=== PATIENT | female | born 1985 | race Caucasian/White ===

== ENCOUNTER 2017-02-18 14:44 | Emergency (ER) | payer OTHER ==
[~2017-02-18] VITALS: Ht 162.6 cm; Wt 98.9 kg
[~2017-02-18 14:44] MED LIST: ACET50TA PO; IBUP60TA PO; PRENTAB7 PO; TUMS500C PO
[2017-02-18] MEDS ORDERED: ASPI81CH PO (15:04)
[2017-02-18] MEDS ORDERED: CRIN4GEL2 VA (15:04)
[2017-02-18] MEDS ORDERED: RHOGAM 300 MCG (1500 IU) INJ (J2790) IM SCH (15:30)
[2017-02-18 16:02] LABS: BASO # 0.1 K/mm3 (0.0-0.2); BASO % 0.7 % (0.0-1.0); EOS # 0.6 K/mm3 (0.0-0.50); EOS % 3.4 % (0.0-3.0); LARGE UNSTAINED CELL # 0.3 K/mm3 (0.0-0.4); LARGE UNSTAINED CELL % 1.7 % (0.0-4.0); LYMPH % 21.1 % (24.0-44.0); MEAN CORPUSCULAR HEMOGLOBIN 33.9 pg (27.0-33.0); MEAN CORPUSCULAR HGB CONC 35.2 g/dl (32.0-36.5); MEAN CORPUSCULAR VOLUME 96.2 fl (80.0-96.0); MONO # 0.8 K/mm3 (0.0-0.8); MONO % 4.3 % (0.0-5.0); NEUTROPHILS % 68.8 % (36.0-66.0); PLATELET COUNT, AUTOMATED 277 k/mm3 (150-450); RED CELL DISTRIBUTION WIDTH 12.9 % (11.5-14.5); WHITE BLOOD COUNT 17.5 K/mm3 (4.0-10.0)
--- NOTE | 2017-02-18 17:01 | REP ---
Obstetric sonography: History: Vaginal spotting. Findings: Transabdominal and transvaginal scanning are performed. Uterine dimensions are normal at 7.7 x 3.4 x 4.3 cm. No intrauterine gestational sac is seen. Endometrial lining measures approximate 4 mm. No free fluid is seen. No focal uterine mass is observed. Normal ovaries are seen. Right ovary measures 2.5 x 1.6 x 3.1 cm. Left ovary dimensions are 2.9 x 2.1 x 2.1 cm. Doppler flow is normal to both ovaries, resistive indices 0.45 and 0.53 on the right and left respectively. Impression: Morphologically normal pelvic sonography. No intrauterine gestation, cul-de-sac fluid, or adnexal abnormality seen. Nonspecific findings. Clinical and possibly sonographic followup should be considered. Signed by Will Malcolm MD 02/18/2017 05:03 P
[2017-02-18 17:16] VITALS: BP 123/60
== END 2017-02-18 17:16 | disposition home or self-care (01) ==
LOC: M ED 14:44
DX: O20.0 Threatened abortion (principal); O99.210 Obesity complicating pregnancy, unspecified trimester; Z3A.00 Weeks of gestation of pregnancy not specified; Z87.891 Personal history of nicotine dependence; Z79.82 Long term (current) use of aspirin; Z79.899 Other long term (current) drug therapy; Z88.0 Allergy status to penicillin; Z88.7 Allergy status to serum and vaccine
CPT/HCPCS: 76801; 76817; 84702; 85025; 86850; 86900; 86901; 93976; 96372; 99282; J2790

== ENCOUNTER → 2017-02-21 | Outpatient (CLI) | payer OTHER ==
[~2017-02-21] MED LIST changes: +ASPI81CH PO; +CRIN4GEL2 VA
== END ==
LOC: M LAB 07:07
PROVIDERS: ATTEND Physician Assistant Surgical
DX: O20.0 Threatened abortion (principal)

== ENCOUNTER → 2017-02-28 | Outpatient (CLI) | payer OTHER | LOC: M LAB 17:21 | PROVIDERS: ATTEND Specialist | DX: O00.80 Other ectopic pregnancy without intrauterine pregnancy (principal) ==

== ENCOUNTER 2017-03-01 12:02 | Outpatient (CLI) | payer OTHER ==
[~2017-03-01] VITALS: Ht 162.6 cm; Wt 100.2 kg
[2017-03-01] MEDS ORDERED: METHOTREXATE 50MG/2ML VIAL (J9260 PER 50MG) IM ONE (12:30)
[2017-03-01 13:27] LABS: MEAN CORPUSCULAR HEMOGLOBIN 33.8 pg (27.0-33.0); MEAN CORPUSCULAR HGB CONC 34.2 g/dl (32.0-36.5); MEAN CORPUSCULAR VOLUME 98.8 fl (80.0-96.0); RED CELL DISTRIBUTION WIDTH 13.3 % (11.5-14.5); WHITE BLOOD COUNT 13.1 K/mm3 (4.0-10.0)
[2017-03-01 14:08] LABS: ALBUMIN/GLOBULIN RATIO 1.38 (1.00-1.93); ALKALINE PHOSPHATASE 73 U/L (45-117); ALT/SGPT 30 U/L (12-78); ANION GAP 11 MEQ/L (8-16); AST/SGOT 16 U/L (15-37); BILIRUBIN,TOTAL 0.8 MG/DL (0.2-1.0); BLOOD UREA NITROGEN 7 MG/DL (7-18); CALCIUM LEVEL 9.4 MG/DL (8.5-10.1); CARBON DIOXIDE LEVEL 22 MEQ/L (21-32); CHLORIDE LEVEL 105 MEQ/L (98-107); CREATININE FOR GFR 0.71 MG/DL (0.55-1.02); GLOMERULAR FILTRATION RATE > 60.0 (>60); GLUCOSE, FASTING 134 MG/DL (70-105); HCG, SERUM QUANTITATIVE 2177 MIU/ML; POTASSIUM SERUM 3.9 MEQ/L (3.5-5.1); SODIUM LEVEL 138 MEQ/L (136-145); TOTAL PROTEIN 6.9 GM/DL (6.4-8.2)
== END 2017-03-01 14:00 | disposition home or self-care (01) ==
LOC: M INFU 12:02
PROVIDERS: ATTEND Specialist
DX: O00.90 Unspecified ectopic pregnancy without intrauterine pregnancy (principal); Z3A.00 Weeks of gestation of pregnancy not specified; Z88.0 Allergy status to penicillin; F17.210 Nicotine dependence, cigarettes, uncomplicated; Z79.899 Other long term (current) drug therapy
CPT/HCPCS: 36415; 80053; 84702; 85027; 86850; 86870; 86900; 86901; 96372; J9260

== ENCOUNTER → 2017-03-04 | Outpatient (CLI) | payer OTHER | LOC: M LAB 06:30 | PROVIDERS: ATTEND Specialist | DX: O00.90 Unspecified ectopic pregnancy without intrauterine pregnancy (principal) ==

== ENCOUNTER → 2017-03-07 | Outpatient (CLI) | payer OTHER | LOC: M LAB 14:30 | PROVIDERS: ATTEND Specialist | DX: O00.90 Unspecified ectopic pregnancy without intrauterine pregnancy (principal) ==

== ENCOUNTER → 2017-03-14 | Outpatient (CLI) | payer OTHER | LOC: M SMT 13:50 | PROVIDERS: ATTEND Specialist | DX: O00.90 Unspecified ectopic pregnancy without intrauterine pregnancy (principal) ==

== ENCOUNTER → 2018-06-12 | Outpatient (CLI) | payer OTHER ==
[2018-06-12 19:05] LABS: BASO # 0.1 10^3/uL (0.0-0.2); BASO % 0.5 % (0.0-1.0); EOS # 0.3 10^3/uL (0.0-0.50); EOS % 1.5 % (0.0-3.0); HEMATOCRIT 41.3 % (36.0-47.0); IMMATURE GRANULOCYTE % 0.5 % (0-3.0); LYMPH # 3.9 10^3/uL (1.5-4.5); LYMPH % 22.6 % (24.0-44.0); MEAN CORPUSCULAR HEMOGLOBIN 31.8 pg (27.0-33.0); MEAN CORPUSCULAR HGB CONC 33.9 g/dl (32.0-36.5); MEAN CORPUSCULAR VOLUME 93.9 fl (80.0-96.0); MONO # 0.9 10^3/uL (0.0-0.8); MONO % 5.1 % (0.0-5.0); NEUTROPHILS # 11.9 10^3/uL (1.8-7.7); NEUTROPHILS % 69.8 % (36.0-66.0); PLATELET COUNT, AUTOMATED 237 10^3/uL (150-450); RED CELL DISTRIBUTION WIDTH 12.5 % (11.5-14.5)
[2018-06-12 23:31] LABS: GC DNA AMPLIFICATION NEGATIVE (NEGATIVE)
[2018-06-13 13:34] LABS: CHLAMYDIA DNA AMPLIFICATION NEGATIVE (NEGATIVE)
[2018-06-14 11:01] LABS: HBsAg Prenatal NEGATIVE (NEGATIVE); HIV 1&2 SCREEN CENTAUR NEGATIVE (NEGATIVE); RUBELLA IgG QUALITATIVE IMMUNE (IMMUNE)
[2018-06-14 11:01] LABS: HEPATITIS C VIRUS ABY INDEX 0.1 INDEX (<0.8)
== END ==
LOC: M SMT 15:05
DX: Z36.89 Encounter for other specified antenatal screening (principal)
CPT/HCPCS: 86762

== ENCOUNTER → 2018-07-11 | Outpatient (CLI) | payer OTHER | LOC: M SMT 15:06 | DX: Z36.89 Encounter for other specified antenatal screening (principal); Z13.79 Encounter for other screening for genetic and chromosomal anomalies | CPT/HCPCS: 36415 ==

== ENCOUNTER → 2018-08-18 | Outpatient (CLI) | payer OTHER ==
[~2018-08-18] MED LIST changes: -ACET50TA PO; +MAPA500T2 PO
--- NOTE | 2018-08-18 19:23 | REP ---
Obstetric sonography: History: Supervision of for anatomy. Findings: Scanning through the gravid uterus demonstrates a viable single intrauterine gestation in a cephalic lie. motion is observed and heart rate is recorded at 163 beats per minute. A posterior placenta is seen grade 1 without evidence of previa. Placental tip is somewhat low-lying measuring 1.5 to 1.8 cm from the internal cervical os on transabdominal images at the end of the exam. Closed cervical length measures 5.2 cm, viewed transabdominally. No extrauterine abnormalities observed. Amniotic fluid is subjectively normal. No anomaly is seen. Four-chamber heart, left and right ventricular outflow tract views and feet are not well seen due to lie. The following additional anatomic structures are identified and felt to be unremarkable: cranium, choroid plexus, cavum, cerebellum and posterior fossa, face and profile, lungs, diaphragm, left-sided stomach, abdominal wall cord insertion, three-vessel umbilical cord, kidneys and bladder, spine, upper extremities. Biometry chart: BPD 4.3 cm = 18 weeks 6 days HC 15.9 cm = 18 weeks 5 days AC 12.7 cm = 18 weeks 2 days FL 2.9 cm = 19 weeks 0 days HL 2.8 cm = 19 weeks 1 day CD 2.0 cm = 19 weeks 2 days HC/AC ratio normal 1.26. Cephalic index normal 0.74. Estimated weight 248 grams, 0 pounds 8 ounces, 67th percentile for 18 weeks 1 day. Impression: Viable single intrauterine gestation at 18 weeks 4 days by today's composite sonographic criteria. HUDSON by today's sonography January 15, 2019. anatomic survey is less than complete with suboptimal visualization of the feet and heart structures. Low-lying posterior placenta. Inferior tip of the placenta is within 2 cm of the internal cervical os. Followup recommended possibly with transvaginal imaging. Amniotic fluid is subjectively normal. Closed cervical length measures 5.2 cm, viewed transabdominally. No extrauterine abnormality is observed. Electronically Signed by Will Malcolm MD 08/18/2018 08:08 P
== END ==
LOC: M SMT 14:40
PROVIDERS: ATTEND Advanced Practice Midwife
DX: Z36.9 Encounter for antenatal screening, unspecified (principal); Z3A.18 18 weeks gestation of pregnancy

== ENCOUNTER → 2018-09-08 | Outpatient (CLI) | payer OTHER ==
--- NOTE | 2018-09-08 17:34 | REP ---
OB ULTRASOUND: Real-time sonographic evaluation of the gravid uterus is performed utilizing transabdominal and endovaginal technique. There is a single living intrauterine gestation. Estimated gestational age is 21 weeks 1 day, EDC 01/18/2019. Today's measurements indicate appropriate growth. BPD 52 mm = 21 weeks 6 days, 70th percentile HC 198 mm = 22 weeks 0 days, 76th percentile AC 167 mm = 21 weeks 5 days, 63rd percentile FL 38 mm = 22 weeks 0 days, 72nd percentile HC/AC ratio 1.18, within normal range. Estimated weight 455 grams, 72nd percentile. Cervix is closed and measures 5.1 cm in length. heart rate 153 beats per minute. SEEN/GROSSLY UNREMARKABLE Lateral ventricles yes Posterior fossa no Upper lip yes Four-chamber heart yes LVOT yes RVOT no Stomach yes Cord insertion no Three vessel cord no Kidneys yes Bladder yes Spine no position: vertex. Placenta: Posterior and low lying with no previa or abruption, tip of the placenta is approximately 2.5 cm from the internal os. Amniotic fluid: Within normal limits. Electronically Signed by Jered Arizmendi MD 09/08/2018 07:42 P
== END ==
LOC: M SMT 14:38
PROVIDERS: ATTEND Advanced Practice Midwife
DX: Z34.82 Encounter for supervision of other normal pregnancy, second trimester (principal)

== ENCOUNTER → 2018-10-13 | Outpatient (CLI) | payer OTHER ==
--- NOTE | 2018-10-13 12:44 | REP ---
Obstetric ultrasound for anatomy: Comparison is 09/08/2018. There is a single intrauterine gestation in a vertex presentation. The placenta is posterior without previa or abruptio with grade 1 maturity. heart rate is 57 beats per minute. Amniotic fluid volume subjectively is normal. Cervix measures 5.1 cm length. Gestational age by today's ultrasound is 27 weeks 1 day/HUDSON 01/11/2019. Gestational age by the first ultrasound is 26 weeks 1 day/HUDSON 01/18 2019. Gestational age by LMP is 26 weeks 1 day/HUDSON 01/18/2019. weight is 1088 grams/2 pounds, 6 ounces. This is the 83rd percentile for 26 weeks 1 day. The following anatomic structures are identified and are unremarkable: Intracranial lateral ventricles, choroid plexus, cavum septum pellucidum, cerebellum, cisterna magna, facial profile, upper lip, lungs, four-chamber heart, cardiac left ventricular outflow tract, diaphragm, stomach, cord insertion, three-vessel cord, kidneys, bladder, spine and upper lower extremities. Suboptimally demonstrated because of position is the cardiac right ventricular outflow tract. The cardiac right ventricle outflow tract could not be satisfactorily demonstrated on the prior ultrasound because of position. A followup study dedicated to this structure might be considered. Otherwise, there are no anomalies. Electronically Signed by Jered Salas MD 10/13/2018 12:36 P
== END ==
LOC: M SMT 08:05
PROVIDERS: ATTEND Obstetrics & Gynecology
DX: Z34.82 Encounter for supervision of other normal pregnancy, second trimester (principal); Z3A.27 27 weeks gestation of pregnancy; Z36.2 Encounter for other antenatal screening follow-up

== ENCOUNTER → 2018-10-24 | Outpatient (CLI) | payer OTHER ==
[~2018-10-24] MED LIST changes: +IBUP600T42 PO; -IBUP60TA PO
[2018-10-24 16:19] LABS: HEMATOCRIT 35.7 % (36.0-47.0); HEMOGLOBIN 11.7 g/dl (12.0-15.5); MEAN CORPUSCULAR HGB CONC 32.8 g/dl (32.0-36.5); MEAN CORPUSCULAR VOLUME 94.4 fl (80.0-96.0); PLATELET COUNT, AUTOMATED 231 10^3/uL (150-450); RED BLOOD COUNT 3.78 10^6/uL (4.00-5.40); WHITE BLOOD COUNT 19.5 10^3/uL (4.0-10.0)
== END ==
LOC: M LAB 14:55
PROVIDERS: ATTEND Obstetrics & Gynecology
DX: Z34.82 Encounter for supervision of other normal pregnancy, second trimester (principal); Z3A.00 Weeks of gestation of pregnancy not specified
CPT/HCPCS: 36415; 82950; 85027; 86850; 86900; 86901; J2790

== ENCOUNTER → 2018-10-31 | Outpatient (CLI) | payer OTHER ==
[~2018-10-31] MED LIST changes: -ASPI81CH PO; +ASPI81CH49 PO; -CRIN4GEL2 VA; +CRIN8GEL4 VA
== END ==
LOC: M LAB 07:14
PROVIDERS: ATTEND Obstetrics & Gynecology
DX: O26.22 Pregnancy care for patient with recurrent pregnancy loss, second trimester (principal)

== ENCOUNTER 2018-11-06 08:21 | Outpatient (CLI) | payer OTHER ==
[~2018-11-06] VITALS: Ht 162.6 cm; Wt 106.7 kg
[2018-11-06 08:41] VITALS: BP 126/69
[2018-11-06] MEDS ORDERED: LACTATED RINGER'S 1000 ML IV ONE (09:00)
[2018-11-06 09:22] LABS: APPEARANCE, URINE CLEAR (CLEAR); BACTERIA, URINE AUTO 2+ (NEGATIVE); BILIRUBIN, URINE AUTO NEGATIVE (NEGATIVE); BLOOD, URINE BLOOD NEGATIVE (NEGATIVE); COLOR, URINE STRAW (YELLOW); GLUCOSE, URINE (UA) AUTO NEGATIVE (NEGATIVE); KETONE, URINE AUTO TRACE mg/dL (NEGATIVE); LEUKOCYTE ESTERASE, URINE AUTO NEGATIVE (NEGATIVE); MUCUS, URINE SMALL (NEGATIVE); NITRITE, URINE AUTO NEGATIVE (NEGATIVE); PROTEIN, URINE AUTO NEGATIVE (NEGATIVE); RBC, URINE AUTO 0 /HPF (0-3); SPECIFIC GRAVITY URINE AUTO 1.002 (1.002-1.035); SQUAMOUS EPITHELIAL CELL UR AU 9 /HPF (0-6); UROBILINOGEN, URINE AUTO 0.2 mg/dL (0.0-2.0); WBC, URINE AUTO 1 /HPF (0-3)
[2018-11-06 11:22] VITALS: BP 113/63
[2018-11-06] MEDS: BETAMETHASONE SOLUSPAN 6MG/ML INJ 5ML (J0702) IM SCH (12:02)
--- NOTE | 2018-11-06 12:26 | REP ---
STAT obstetric ultrasound for contractions: By the first ultrasound gestational age is 30 weeks 0 days with an HUDSON of 01/15/2019. There is a single intrauterine gestation in a vertex presentation. The heart rate is 160 beats per minute. The cervix measures 5.8 cm length. The placenta is posterior. There is no placenta previa. However, on the study today there is a marginal placental abruptio at the superior tip of the placenta with dissection into the subchorionic space anterior to the placenta. The hematoma measures 11.8 x 9.1 x 9.9 cm. Impression: Marginal placenta abruptio with subchorionic hematoma as described. Electronically Signed by Jered Salas MD 11/06/2018 12:18 P
[2018-11-06 12:44] LABS: HEMATOCRIT 36.5 % (36.0-47.0); HEMOGLOBIN 12.1 g/dl (12.0-15.5); MEAN CORPUSCULAR HGB CONC 33.2 g/dl (32.0-36.5); MEAN CORPUSCULAR VOLUME 93.6 fl (80.0-96.0); PLATELET COUNT, AUTOMATED 254 10^3/uL (150-450); WHITE BLOOD COUNT 22.3 10^3/uL (4.0-10.0)
[2018-11-06 14:27] VITALS: BP 115/55
[2018-11-06 17:29] VITALS: BP 115/56
[2018-11-06] MEDS ORDERED: diphenhydrAMINE 25 MG CAP PO ONE (21:15)
[2018-11-06 21:23] VITALS: BP 115/61
[2018-11-06] MEDS: TERBUTALINE SULFATE 1 MG/ML VIAL (J3105) SC SCH (21:26)
--- NOTE | 2018-11-06 22:13 | IPNPDOC ---
Text Note Date of Service The patient was seen on 11/06/18. NOTE Subjective: Patient is a 33-year-old female who is a at 29.4 weeks [facility] with an HUDSON of 01/18/19 based off of her LMP and consistent with her 1st trimester ultrasound. She initiated care in her first trimester with AWP. Her has been complicated by a low-lying placenta that was resolved by 10/13/18. She also has a history of recurrent losses. She presented to L&D with complaints of cramping that started last night after 2 am. She reports the cramping was a 5/10 last night and now a 3/10 upon arrival to hospital. She reports active movement. She denies vaginal bleeding or leaking of fluid. States she has not had intercourse in 48 +hours. She denies any vaginal odor or vaginal itching. She denies any abdominal trauma. Medical history: anxiety, varicella as a child Surgical history: none Family history: MS, diabetes, breast cancer Social history: . Former smoker. Denies alcohol or drug use or abuse. No history of abuse-emotional, physical, or sexual. No history of STDs. Obstetrical history: January 2014: 6 week SAB September 2014: 4 week SAB October 2015: 41 week vacuum assisted delivery with shoulder dystocia of a living female weighting 9 lbs 9 oz. September 2016: 4 week SAB March 2017: 7 week ectopic- methotrexate OB labs: A negative blood type; rubella immune, VDRL non-reactive; urine no growth, HIV negative, HBsAG negative; Hep C negative, CT/GC negative; low risk NIPT testing with male fetus; 1 hour GTT: 182; 3 hr GTT: 96, 177, 121, 55; Rhogam received 3.. Objective: Labs, VS, and ultrasound: see below. FHR 135, moderate variability, positive accelerations, no decelerations. Contractions every 1-3 minutes. A+O x3. Respiratory: regular rate and no use of accessory muscles. Abdomen: gravid. Nontender to touch with contractions that are very mild to palpation. Speculum exam: cervix appears closed and thick, no vaginal bleeding noted, discharge is clear and thin. FFN, GBS, and wet prep obtained. Wet prep negative on microscopy. SVE: closed and no show with exam. Assessment: IUP at 29.4 weeks gestation, marginal placental abruptio with subchorionic hematoma Plan: Reviewed patient's symptoms, case and labs with Dr. Tomlinson. He has been consulted throughout patient being in the hospital. Betamethasone IM x2 now and again in 24 hours to be started. IV started. Labs obtained: see below. Will continue to monitor. Consider terbutaline. VS,Fishbone, I+O VS, Fishbone, I+O Laboratory Tests 11/06/18 11:42 Red Blood Count 3.90 L, Mean Corpuscular Volume 93.6, Mean Corpuscular Hemoglobin 31.0, Mean Corpuscular Hemoglobin Concent 33.2, Red Cell Distribution Width 13.3 Vital Signs Date Time Temp Pulse Resp B/P (MAP) Pulse Ox O2 Delivery O2 Flow Rate FiO2 11/06/18 17:29 98.1 110 18 115/56 (75) STAT obstetric ultrasound for contractions: By the first ultrasound gestational age is 30 weeks 0 days with an HUDSON of 01/15/2019. There is a single intrauterine gestation in a vertex presentation. The heart rate is 160 beats per minute. The cervix measures 5.8 cm length. The placenta is posterior. There is no placenta previa. However, on the study today there is a marginal placental abruptio at the superior tip of the placenta with dissection into the subchorionic space anterior to the placenta. The hematoma measures 11.8 x 9.1 x 9.9 cm. Impression: Marginal placenta abruptio with subchorionic hematoma as described. Electronically Signed by Jered Salas MD 11/06/2018 12:18 P Item Value Date Time Fibronectin POSITIVE A 11/06/18 1027 Result Comment: No cells seen. /Adult Volume of Vials of Rhogam RBC Ratio FM Indicated 0.0000-0.0045 up to 15 mL 1 0.0046-0.0090 15-30 mL 2 0.0091-0.0135 30-45 mL 3 0.0136-0.0180 45-60 mL 4 0.0181-0.0225 60-75 mL 5 MUNA LARA CNM Nov 06, 2018 22:13
[2018-11-07 06:44] VITALS: BP 114/60
[2018-11-07] MEDS: TERBUTALINE SULFATE 1 MG/ML VIAL (J3105) SC SCH (08:01)
[2018-11-07 08:07] VITALS: BP 107/55
[2018-11-07] MEDS: BETAMETHASONE SOLUSPAN 6MG/ML INJ 5ML (J0702) IM SCH (11:51)
[2018-11-07 11:56] VITALS: BP 119/56
[2018-11-07 13:33] VITALS: BP 113/56
[2018-11-07 14:17] LABS: BASO # 0.1 10^3/uL (0.0-0.2); BASO % 0.3 % (0.0-1.0); EOS # 0.1 10^3/uL (0.0-0.50); EOS % 0.4 % (0.0-3.0); HEMATOCRIT 33.7 % (36.0-47.0); HEMOGLOBIN 11.1 g/dl (12.0-15.5); LYMPH # 3.2 10^3/uL (1.5-4.5); LYMPH % 12.6 % (24.0-44.0); MEAN CORPUSCULAR HEMOGLOBIN 30.8 pg (27.0-33.0); MEAN CORPUSCULAR HGB CONC 32.9 g/dl (32.0-36.5); MEAN CORPUSCULAR VOLUME 93.6 fl (80.0-96.0); MONO # 1.3 10^3/uL (0.0-0.8); NEUTROPHILS # 20.2 10^3/uL (1.8-7.7); NEUTROPHILS % 78.5 % (36.0-66.0); PLATELET COUNT, AUTOMATED 242 10^3/uL (150-450); WHITE BLOOD COUNT 25.7 10^3/uL (4.0-10.0)
[2018-11-07 16:19] VITALS: BP 127/58
--- NOTE | 2018-11-07 21:41 | IPN ---
DATE: 11/07/2018 SUBJECTIVE: This patient is a 33-year-old 6, para 1 that is at 29 weeks, 5 days estimated gestational age with an estimated due date of 01/18/2019. She was first seen yesterday for a labor workup. She presented with complaints of contractions that had continued throughout the course of the morning. She initially rated them 5/10 but upon arrival to the hospital they were 3/10. She was evaluated yesterday. She had a category one heart rate tracing, heart rate 130s with moderate variability and acceleration. No decelerations. She was noted to have contractions approximately every three minutes. She was examined. Her cervix was closed. She had a transvaginal ultrasound that demonstrated her cervix was 5 cm. As an incidental finding, there was noted to be a marginal placenta abruption at the tip of the placenta with an approximately 11.8 x 9.1 x 9.9 cm hematoma. She was given a course of steroids. She was monitored continuously for greater than 24 hours. Her vital signs remained stable. She had no vaginal bleeding or leakage of fluid. She reported active movement throughout this time. Her contractions spaced out with a dose of terbutaline. She continues to have contractions but rated them as mild contractions. She denies any vaginal pain, any abdominal or back pain. OBJECTIVE: Her laboratories once again have remained stable. She remains afebrile. GENERAL APPEARANCE: She is well-appearing, in no acute distress. ABDOMEN: Soft, gravid, nontender. Bedside transabdominal ultrasound performed prior to discharge, she had a biophysical profile of 10/10, amniotic fluid of 19 cm, cephalic. She has a category one heart tracing with heart rates 130s, positive accelerations, no decelerations, contractions have been irregular. LABORATORY DATA: Her CBC upon presentation yesterday: WBC is 22, hemoglobin of 12.1, hematocrit 36.5, platelets of 254. Today, her white count is 25, hemoglobin and hematocrit 11.1 and 33.7, and platelets 242. Betke was negative today, as well as yesterday. ASSESSMENT: 1. The patient is a 33-year-old 6, para 1 at 29 weeks, 5 days estimated gestational age with contractions and labor. 2. Subchorionic hematoma, appears to be stable with sonographic findings concerning for a marginal placenta abruption. The patient is clinically stable and no clinical signs of abruption. She has completed a course of steroids and reassuring testing and stable laboratories PLAN: I discussed with couple the nature of placenta abruption and plan of care. We discussed expectant management with risk, benefits and alternative options of care. All questions answered and Mrs Garzaig comfortable with plan to discharge home. She will have close followup. Her next appointment is tomorrow at 3:15. We will follow this with weekly biophysical profiles and serial and growth ultrasounds. KIM
== END 2018-11-07 16:45 | disposition home or self-care (01) ==
LOC: M LDO 08:21
PROVIDERS: ATTEND Advanced Practice Midwife
DX: O26.893 Other specified pregnancy related conditions, third trimester (principal); R10.30 Lower abdominal pain, unspecified; O47.03 False labor before 37 completed weeks of gestation, third trimester; Z3A.29 29 weeks gestation of pregnancy
CPT/HCPCS: 36415; 59025; 76815; 76817; 81001; 82731; 85025; 85027; 85460; 86850; 86870; 86900; 86901; 87081; 96372; G0378; G0463; J0702; J3105

== ENCOUNTER 2018-11-08 12:19 | Inpatient (IN) | payer OTHER ==
[2018-11-08] VITALS (15 sets, daily range): BP systolic 98–119; BP diastolic 54–68
[~2018-11-08] VITALS: Ht 162.6 cm; Wt 106.0 kg
[2018-11-08] MEDS ORDERED: dexameTHASONE 4 MG/ML 1ML VIAL (J1100) As Ordered ONE (12:54)
[2018-11-08] MEDS ORDERED: fentaNYL 100 MCG/2 ML INJECTION (J3010) As Ordered ONE ×2 (12:54→15:43)
[2018-11-08] MEDS ORDERED: PROPOFOL 200 MG/20 ML VIAL As Ordered ONE (12:54)
[2018-11-08] MEDS ORDERED: MIDAZOLAM INJ 2 MG/2 ML VIAL (J2250) As Ordered ONE (12:54)
[2018-11-08] MEDS ORDERED: ONDANSETRON 4MG/2ML VIAL (J2405) As Ordered ONE ×2 (12:54→15:28)
[2018-11-08] MEDS ORDERED: SUCCINYLCHOLINE 100 MG/5 ML SYRINGE (J0330) As Ordered ONE (12:54)
[2018-11-08] MEDS ORDERED: PHENYLephrine HCL 500 MCG/5 ML (100MCG/ML) SYRINGE (J2370) As Ordered ONE (12:56)
[2018-11-08] MEDS ORDERED: AZTREONAM 2 GM in D5W MINI-BAG PLUS 50 ML IV ONE (13:00)
[2018-11-08] MEDS ORDERED: CLINDAMYCIN 900 MG in APPROPRIATE DILUENT 1 EA IV ONE (13:00)
[2018-11-08] MEDS ORDERED: ROCURONIUM BROMIDE 50 MG/5 ML VIAL As Ordered ONE (13:13)
[2018-11-08 13:16] LABS: CORD GAS ABE A -28.4; CORD GAS HCO3 A 10.3 MEQ/L; CORD GAS PCO2 A 93.2 mmHg; CORD GAS PO2 A 34.3 mmHg; CORD GAS SBC A 5.4 MEQ/L; CORD GAS TCO2 A 13.2 MEQ/L
[2018-11-08 13:23] LABS: CORD GAS ABE V -29.7; CORD GAS HCO3 V 4.2 MEQ/L; CORD GAS O2 SAT V 68.9 %; CORD GAS PCO2 V 28.2 mmHg; CORD GAS PO2 V 53.8 mmHg; CORD GAS SBC V 4.3 MEQ/L; CORD GAS TCO2 V 5.1 MEQ/L
[2018-11-08 13:25] LABS: CORD GAS PH A 6.662 UNITS
[2018-11-08 13:26] LABS: CORD GAS PH V 6.795 UNITS
[2018-11-08] MEDS ORDERED: SUGAMMADEX SODIUM 500 MG/5 ML VIAL (BRIDION) As Ordered ONE (14:15)
[2018-11-08 14:20] LABS: ABG BASE EXCESS -8.8 (-2.0-2.0); ABG HCO3 18.1 MEQ/L (22.0-26.0); ABG O2 SATURATION 98.5 % (95.0-99.0); ABG PARTIAL PRESSURE CO2 43.9 mmHg (35.0-45.0); ABG PARTIAL PRESSURE O2 144.2 mmHg (75.0-100.0); ABG STANDARD HCO3 17.2 MEQ/L (22.0-26.0); ABG TOTAL CO2 19.4 MEQ/L (22.0-29.0)
[2018-11-08 14:24] LABS: HEMATOCRIT 22.1 % (36.0-47.0); MEAN CORPUSCULAR HEMOGLOBIN 31.6 pg (27.0-33.0); MEAN CORPUSCULAR HGB CONC 32.6 g/dl (32.0-36.5); MEAN CORPUSCULAR VOLUME 96.9 fl (80.0-96.0); PLATELET COUNT, AUTOMATED 102 10^3/uL (150-450); RED BLOOD COUNT 2.28 10^6/uL (4.00-5.40)
[2018-11-08 14:24] LABS: ABG pH (ARTERIAL) 7.232 UNITS (7.350-7.450)
[2018-11-08] MEDS ORDERED: MORPHINE PRES-FREE INJ 10 MG/10 ML VIAL (J2274) As Ordered ONE (14:26)
[2018-11-08 14:32] LABS: HEMOGLOBIN 7.2 g/dl (12.0-15.5); WHITE BLOOD COUNT 43.6 10^3/uL (4.0-10.0)
[2018-11-08 14:37] LABS: PARTIAL THROMBOPLASTIN TIME 33.7 SECONDS (25.4-37.6)
--- NOTE | 2018-11-08 14:37 | REP ---
Right hip, two AP views in the operating room, stat request: Mineralization and joint space are normal. There is no fracture or dislocation. There are no calcifications. There are no radio-opaque foreign bodies. There are artifacts from gowning material. Electronically Signed by Jered Salas MD 11/08/2018 02:28 P
[2018-11-08 14:42] LABS: PROTHROMBIN TIME 23.1 SECONDS (12.1-14.4)
[2018-11-08 14:47] LABS: BLOOD UREA NITROGEN 16 MG/DL (7-18); CALCIUM LEVEL 6.9 MG/DL (8.5-10.1); CARBON DIOXIDE LEVEL 20 MEQ/L (21-32); CHLORIDE LEVEL 109 MEQ/L (98-107); GLOMERULAR FILTRATION RATE > 60.0 (>60); GLUCOSE, FASTING 210 MG/DL (70-100); POTASSIUM SERUM 3.8 MEQ/L (3.5-5.1); SODIUM LEVEL 139 MEQ/L (136-145)
[2018-11-08] MEDS ORDERED: OXYTOCIN 30 UNITS IN 0.9% NaCl 500ML IV BAG (J2590) As Ordered ONE (14:54)
[2018-11-08] MEDS ORDERED: MORPHINE 1MG/ML IN 0.9% NACL 100ML IV BAG As Ordered ONE (14:55)
[2018-11-08] MEDS ORDERED: PERCOCET 5MG/325MG TAB PO PRN (15:00)
[2018-11-08] MEDS ORDERED: MORPHINE 10 MG/ML 1ML VIAL (J2270) IV PRN (15:00)
[2018-11-08] MEDS ORDERED: ONDANSETRON 4MG/2ML VIAL (J2405) IV PRN (15:00)
[2018-11-08] MEDS ORDERED: LR 1,000 ML IV SCH (15:00)
[2018-11-08 15:11] LABS: ABG BASE EXCESS -5.5 (-2.0-2.0); ABG HCO3 17.8 MEQ/L (22.0-26.0); ABG O2 SATURATION 99.2 % (95.0-99.0); ABG PARTIAL PRESSURE CO2 26.4 mmHg (35.0-45.0); ABG PARTIAL PRESSURE O2 214.5 mmHg (75.0-100.0); ABG STANDARD HCO3 19.9 MEQ/L (22.0-26.0); ABG TOTAL CO2 18.6 MEQ/L (22.0-29.0); ABG pH (ARTERIAL) 7.447 UNITS (7.350-7.450)
[2018-11-08 15:12] LABS: HEMATOCRIT 20.9 % (36.0-47.0); HEMOGLOBIN 7.1 g/dl (12.0-15.5); MEAN CORPUSCULAR VOLUME 94.1 fl (80.0-96.0); PLATELET COUNT, AUTOMATED 115 10^3/uL (150-450); RED BLOOD COUNT 2.22 10^6/uL (4.00-5.40)
[2018-11-08 15:25] LABS: INR 1.63; PROTHROMBIN TIME 19.6 SECONDS (12.1-14.4)
[2018-11-08] MEDS ORDERED: NS 1,000 ML IV SCH (15:32)
[2018-11-08] MEDS ORDERED: OXYTOCIN DRIP 30 UNITS in APPROPRIATE DILUENT 1 EA IV SCH (15:32)
[2018-11-08 15:41] LABS: WHITE BLOOD COUNT 39.9 10^3/uL (4.0-10.0)
[2018-11-08] MEDS ORDERED: MEASLES,MUMPS,RUBELLA VACCINE INJ (MMR-II) (90707) SC SCH (15:45)
[2018-11-08] MEDS ORDERED: EPIDURAL/PCA KEYS XX PRN (15:45)
[2018-11-08] MEDS ORDERED: NALOXONE INJ 0.4 MG/1 ML VIAL (J2310) IV PRN (15:45)
[2018-11-08] MEDS ORDERED: NALBUPHINE HCL 10 MG/ML AMP (J2300) IV PRN (15:45)
[2018-11-08] MEDS ORDERED: diphenhydrAMINE INJ 50MG/ML VIAL (J1200) IV PRN (15:45)
[2018-11-08] MEDS: fentaNYL 100 MCG/2 ML INJECTION (J3010) IV PRN ×4 (15:48→16:10)
[2018-11-08] MEDS: MORPHINE 1MG/ML IN 0.9% NACL 100ML IV BAG IV PRN (15:54)
[2018-11-08] MEDS ORDERED: OXYTOCIN INJ 20 UNITS in LR 1,000 ML IV ONE (16:00)
[2018-11-08] MEDS ORDERED: METHYLERGONOVINE MALEATE 0.2 MG/ML VIAL (J2210) IM ONE (16:15)
[2018-11-08] MEDS ORDERED: CARBOPROST TROMETHAMINE 250 MCG/ML AMP IM ONE (16:15)
[2018-11-08] MEDS ORDERED: ACETAMINOPHEN TAB 650MG DOSE (2X325MG) PO ONE (17:00)
[2018-11-08] MEDS ORDERED: diphenhydrAMINE INJ 50MG/ML VIAL (J1200) IV ONE (17:00)
[2018-11-08] MEDS: LR 1,000 ML IV SCH ×2 (19:34→23:32)
[2018-11-08] MEDS: DOCUSATE SODIUM 100 MG CAP PO SCH (19:35)
--- NOTE | 2018-11-08 22:48 | HPE ---
DATE OF ADMISSION: 11/08/2018 CHIEF COMPLAINT: Abdominal pain. HISTORY OF PRESENT ILLNESS: Ms. Perez is a 33-year-old 6, para 1, who presents at 39 weeks 6 days estimated gestational age with due date of 01/18/2019 with initial complaint of contractions. She is a patient who had been observed initially November 06, 2018. She was seen in Labor delivery for workup evaluationl; at which time, she was found to have on ultrasound marginal placenta abruption with a subchorionic hematoma. She was monitored throughout the day. The following evening she had remained stable. Vital signs remained stable. She had a reassuring testing throughout this time. We had discussed further observation Labor delivery versus disposition home with close followup. She was discharged home after reviewing risks, benefits with followup on day of presentation. Her appointment was set at approximately 10 a.m. this morning. She notify the office of having increased cramping with some vaginal discharge. She was instructed to come in for evaluation. Upon arrival to my office, she stated that she had not felt the baby move approximately 2 hours and was having constant pain. She was placed in ultrasound room; at which time, I visualized decelerations that alem with a heart rate of 60 with return with a heart rate of 120. She was instructed to immediately report to labor and delivery for further evaluation. Upon her arrival to labor and delivery, an IV was quickly placed, bedside ultrasound was confirmed, repetitive decelerations at which time the patient was verbally consented for emergency surgery, was briskly taken to the operating room for concerns for placenta abruption. PAST HISTORY: Anxiety. PAST SURGICAL HISTORY: None. SOCIAL HISTORY: She is a former smoker but denies any alcohol, tobacco or drug use during her . ASSESSMENT: Ana is a time 33-year-old 6, para1 at 29 weeks, 6 days estimated gestational age with concerns for placenta abruption with appearance of non-reassuring status with bradycardia versus repetitive decelerations/ PLAN: Proceed emergently for delivery. Please see operative note for further details.
[2018-11-08] MEDS: AZTREONAM 2 GM in D5W MINI-BAG PLUS 50 ML IV SCH (23:16)
[2018-11-08] MEDS: CLINDAMYCIN 900 MG in APPROPRIATE DILUENT 1 EA IV SCH (23:16)
[2018-11-09] VITALS (23 sets, daily range): BP systolic 81–124; BP diastolic 39–67
[2018-11-09] MEDS: NS 1,000 ML IV SCH ×2 (01:15→21:15)
[2018-11-09 02:27] LABS: HEMATOCRIT 19.6 % (36.0-47.0); HEMOGLOBIN 7.1 g/dl (12.0-15.5); MEAN CORPUSCULAR HEMOGLOBIN 32.6 pg (27.0-33.0); MEAN CORPUSCULAR HGB CONC 36.2 g/dl (32.0-36.5); MEAN CORPUSCULAR VOLUME 89.9 fl (80.0-96.0); RED BLOOD COUNT 2.18 10^6/uL (4.00-5.40)
[2018-11-09 02:43] LABS: PLATELET COUNT, AUTOMATED 85 10^3/uL (150-450); WHITE BLOOD COUNT 26.1 10^3/uL (4.0-10.0)
[2018-11-09 02:46] LABS: LYMPHOCYTES 35 % (16-52); METAMYELOCYTES 2 % (0-0); MONOCYTES 5 % (0-8); NEUTROPHILS 58 % (35-75)
[2018-11-09 02:47] LABS: PLATELET ESTIMATE DECREASED (NORMAL); POLYCHROMASIA 1+
[2018-11-09 02:51] LABS: ALBUMIN 1.7 GM/DL (3.2-5.2); BILIRUBIN,DIRECT 0.2 MG/DL (0.0-0.2); BILIRUBIN,TOTAL 0.8 MG/DL (0.2-1.0); CALCIUM LEVEL 6.4 MG/DL (8.5-10.1); CREATININE FOR GFR 1.16 MG/DL (0.55-1.30); GLOMERULAR FILTRATION RATE 57.3 (>60); POTASSIUM SERUM 4.3 MEQ/L (3.5-5.1); TOTAL PROTEIN 3.7 GM/DL (6.4-8.2)
[2018-11-09] MEDS: AZTREONAM 2 GM in D5W MINI-BAG PLUS 50 ML IV SCH ×3 (05:27→21:11)
[2018-11-09] MEDS: CLINDAMYCIN 900 MG in APPROPRIATE DILUENT 1 EA IV SCH ×3 (06:50→23:22)
--- NOTE | 2018-11-09 06:50 | RO ---
DATE OF PROCEDURE: 11/08/2018 PREOPERATIVE DIAGNOSES: 1. Placenta abruption. 2. Intrauterine at 29 weeks 6 days. POSTOPERATIVE DIAGNOSIS: Placenta abruption, hemodynamically unstable PROCEDURE: Emergent lower transverse section. SURGEON: Fidelina Tomlinson MD STIFF NECK LOADER: 1. Dr. Dennis Saenz 2. Dr. Aris Avitia 3. Dr. Antoine Reddy ANESTHESIA: General endotracheal anesthesia. ESTIMATED BLOOD LOSS: 1500 mL. URINE OUTPUT: 25 mL. FLUIDS: 3400 mL of crystalloid, 3 units of packed red blood cells, 2 units of fresh frozen plasma, 2 packs of platelets. ANTIBIOTICS GIVEN INTRAOPERATIVELY: 1. 900 mg of clindamycin. 2. 2 grams of Azactam. SPECIMEN: Cord gases and placenta. OPERATIVE FINDINGS: Male , approximately 4 pounds. Large amounts of clots removed intrauterine consistent with placenta abruption, approximately 70%- 80% detachment of the placenta. INDICATIONS FOR OPERATION: This is a 33-year-old, 6, para 1, 29 weeks 6 days estimated gestational age, who presented to labor and delivery following an office visit where she was noted to have bradycardia. This patient was previously diagnosed with a marginal placenta abruption which was chronic in nature and stable and was evaluated Tuesday to Tuesday and was discharged home with close follow up the following day. Prior to her appointment time, she reported some increasing discomfort at which time she was instructed to present earlier than her appointment and was found to have bradycardia versus distress. She was found to have deceleration on transabdominal ultrasound and was instructed to present to labor and delivery immediately. Upon her arrival to labor and delivery, we proceeded emergently for stat section for concerns of placenta abruption. Secondary to the urgent nature of the surgery, an instrument and lap count was not obtained. We did complete an x-ray at the end of surgery showing no intraoperative instruments or laps. DESCRIPTION OF OPERATION: After informed consent was obtained, the patient was emergently taken to the operating room where she was quickly intubated. There was a splash prep with Betadine which was performed. This was followed by an incision which was a Pfannenstiel skin incision , after intubation. This incision was carried down to the underlying rectus fascia which were scored. The fascia was manually extended. The rectus muscles were in the midline. The peritoneum was entered. Uterine incision was then made. Amniotomy was then productive with large amounts of clots which was removed. The fetus was then delivered. Cord was clamped times two and was cut. The infant was taken to the warmer where neonatology staff awaited for resuscitation of the . Cord gases were obtained. The placenta was then inspected with large organized clot with approximately 70% - 80% of abruption which was noted. The remainder of the placenta was then removed. The uterus then exteriorized and cleared of all clots and debris. The uterine incision was closed in two layers using #0 Vicryl, first in a running locking fashion followed by a secondary layer in a running nonlocking fashion. There were several [id number] stitches placed, at which time labs were ordered for concerns of disseminated intravascular coagulation. There was persistent superficial bleeding on the subcutaneous tissue and muscle at which time pressure was held. We then initiated protocol for hemorrhage and mass transfusion. I also requested the assistance of Dr. Saenz, followed by Dr. Avitia and Dr. Reddy for wound closure and to help stabilize the patient following delivery of the . After transfusion of blood products, the patient's bleeding had subsided with minimal amounts of bleeding from the subcutaneous tissue and skin and no bleeding from the muscle or the uterine incision line. I then proceeded to close the anterior peritoneum along with the rectus muscles using #3-0 Vicryl. The subcutaneous tissue was closed with #3-0 Vicryl in a running nonlocking fashion. The skin was then closed with #4-0 Monocryl in a subcuticular fashion. The incision was then cleaned and dried. Steri-Strips were applied over the incision. The incision was dressed. Following the x-ray showing no intraabdominal instruments or laps, the patient was extubated. She was then moved to recovery in stable condition. Dr. Saenz, Dr. Reddy and Dr. Avitia played an essential role in stabilizing the patient. They individually assisted with helping to stabilize the patient once the was delivered and disseminated intravascular coagulation was suspected. KIM
--- NOTE | 2018-11-09 08:31 | REP ---
Portable chest, a 08:00 a.m., single AP semi upright view: There are no comparisons. There is an incomplete inspiratory effort. There is a left lower lobe infiltrate and there is an infiltrate in the left costophrenic angle. The right lung is clear. Cardiac size is upper normal for positioning. The vikas, mediastinum, and skeletal structures are unremarkable. Impression: Incomplete inspiratory effort. Left lower lobe infiltrate. Left costophrenic angle infiltrate. Electronically Signed by Jered Salas MD 11/09/2018 08:18 A
[2018-11-09] MEDS: DOCUSATE SODIUM 100 MG CAP PO SCH ×2 (08:50→21:11)
[2018-11-09] MEDS: PRENATAL VITAMINS CHEWABLE TABLET PO SCH (08:50)
[2018-11-09] MEDS: MORPHINE 1MG/ML IN 0.9% NACL 100ML IV BAG IV PRN (11:23)
[2018-11-09 11:37] LABS: HEMATOCRIT 26.8 % (36.0-47.0); HEMOGLOBIN 9.5 g/dl (12.0-15.5); MEAN CORPUSCULAR HEMOGLOBIN 30.6 pg (27.0-33.0); MEAN CORPUSCULAR HGB CONC 35.4 g/dl (32.0-36.5); MEAN CORPUSCULAR VOLUME 86.5 fl (80.0-96.0)
--- NOTE | 2018-11-09 11:38 | CR ---
DATE OF CONSULTATION: 11/09/2018 HISTORY OF PRESENT ILLNESS: Mrs. Perez is a 33-year-old female who presented at 29 weeks of gestational age with a due date of 01/18/2019 with an initial complaint of contractions. The patient was seen in labor and delivery for a workup evaluation when she was found on ultrasound to have marginal placental abruption with subchorionic hematoma. She was noted to have stable vital signs and a reassuring testing throughout her observational stay there. She was discharged home. The patient was discharged to home, and she had a followup appointment with obstetrics (OB). At that visit, she had complained of increased cramping and some vaginal discharge. The patient was noted on ultrasound to have decelerations, and she went immediately to labor and delivery. The patient went for emergent surgery for concern for placental abruption. The patient had an emergent (C) section done yesterday. The fetus was delivered and taken to intensive care unit (ICU). The patient was found to have in the operating room (OR) a large organized clot with approximately 70% abruption with the placenta. The remainder of the placenta was removed, and the uterine incision was closed. She continued to have persistent superficial bleeding with concern for disseminated intravascular coagulation (DIC). Patient was hypotensive and tachycardic. Rapid transfusion protocol and hemorrhage protocol was initiated. She was given 3 units of packed red blood cells (PRBC) through a rapid transfuser, as well as 2 units of platelets and 4 units of FFP. She was able to be extubated post procedure and transferred to ICU for further monitoring. Post operatively she was given an additional 2 units PRBC and her patient's blood pressure has remained stable In the ICU, her labs showed low fibrinogen level, and I recommended a transfusion with cryoprecipitate. She was also given an additional 2 units of PRBC overnight. This morning, she complains of some abdominal pain in the incision site, as well as some pain in her right shoulder and back area. This is worse with deep inspiration. 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 However, continues to complain of pain that is rated 6- 7/10. She has not had any fevers overnight. She does continue to have some tachycardia, but her blood pressures have been stable and correlating in the cuff and the A line. However, this morning, her A line appears to be malfunctioning. Overnight, the patient was noted to desaturating and was placed on nasal cannula oxygen supplementation. PAST MEDICAL HISTORY: Anxiety, history of previous pregnancies with miscarriages, heart murmur with mitral valve prolapse. PAST SURGICAL HISTORY: Tonsillectomy. SOCIAL HISTORY: Former smoker but no history of alcohol, tobacco, or drug use during her . FAMILY HISTORY: Mother with a history of diabetes. HOME MEDICATIONS: - vitamin - Tums as needed - aspirin 81 mg - ibuprofen as needed ALLERGIES: To AMOXICILLIN and PERTUSSIS VACCINE. PHYSICAL EXAMINATION: Temperature 98.3, pulse 111, respirations 18, blood pressure 104/81, oxygen (O2) saturation 94% on 2 liters nasal cannula. General: The patient is lying in bed, appears comfortable. Has some mild distress due to pain and with minimal movement. Does not appear to be in respiratory distress. Is able to speak in complete sentences. HEENT: Normocephalic, atraumatic. Conjunctivae are pale. Mucous membranes are moist. Neck is supple. No palpable cervical adenopathy. Trachea is midline. Cardiovascular: Regular rate and rhythm. Normal S1, S2, faint murmur auscultated. Pulmonary: Diminished breath sounds bilaterally with some crackles at the bases. Abdomen is soft, mildly distended, and tender. Lower extremities: There is trace lower extremity edema bilaterally. LABORATORIES: WBC 26.1, hemoglobin 7.1, platelets 85. Chemistry: Sodium 137, potassium 4.3, chloride 104, bicarbonate 22, BUN 22, creatinine 1.16, glucose was 149, albumin is 1.7. Repeat fibrinogen went from 87 to 200. Her arterial blood gas (ABG) yesterday showed improvement from initial acidosis to a pH of 7.447, pCO2 of 26.4, and pO2 of 214.5. ASSESSMENT AND PLAN: The patient is a 33-year-old female who was 29 weeks when she presented with placental abruption requiring emergent C section and delivery. Intraoperatively, the patient was noted to have persistent bleeding and concern for possible DIC. Rapid transfusion protocol was initiated, and the hemorrhage protocol was initiated, and the patient received in the OR 3 units of PRBCs, 2 units of platelets, and 4 units of FFP. Postsurgery she was transfused an additional 2 units of PRBC and then transferred to the ICU. In the ICU, she did have a low fibrinogen consistent with DIC. She was given cryoprecipitate, as well as an additional 2 unit PRBC overnight. She has not had any further vaginal discharge, and her blood pressures have remained stable. She is tachycardic still, however. Her hemoglobin is stable but did not show an appropriate response to the blood transfusion. I suspect that her actual hemoglobin was much lower than the 7 that was seen intraoperatively. Patient is now in total s/p 7 units PRBC, 2 units of platelets, 4 units FFP and cryoprecipitate. The patient has some mild thrombocytopenia. Would continue to monitor and hold off on transfusion of her platelets at this time, as she does not appear to be actively bleeding. Will continue to monitor her hemoglobin and hematocrit and her coagulopathy. The patient was noted to have some increased creatinine, likely some mild acute kidney injury in the setting of her hypotension intraoperatively with her hemorrhage. She is having some good urine output currently on maintenance fluids. The patient is net positive almost 3 liters since yesterday. Will add on a creatine phosphokinase (CPK) to check for possible rhabdomyolysis. Will also get a chest x-ray to evaluate for any pulmonary vascular congestion and fluid overload, given her hypoxemia. Suspect part of it is due to atelectasis. Advised patient to start incentive spirometer and to continue with her pain control with morphine. If there is evidence of fluid overload, would hold off on IV fluid hydration and continue with by mouth hydration. The patient did have leukocytosis, which may be secondary to an acute reaction. However, she is also on antibiotics for possible infection with aztreonam and clindamycin. Continue deep venous thrombosis (DVT) prophylaxis with sequential compression devices (SCDs) and thromboembolic deterrents (TEDs). FULL CODE. Total critical care time spent not including any procedures approximately 50 minutes. MTDD
[2018-11-09 11:40] LABS: PLATELET COUNT, AUTOMATED 84 10^3/uL (150-450)
[2018-11-09 11:42] LABS: WHITE BLOOD COUNT 33.5 10^3/uL (4.0-10.0)
[2018-11-09 11:47] LABS: INR 1.03; PROTHROMBIN TIME 13.6 SECONDS (12.1-14.4)
[2018-11-09 12:08] LABS: ALBUMIN 1.9 GM/DL (3.2-5.2); ALT/SGPT 13 U/L (12-78); BILIRUBIN,TOTAL 1.1 MG/DL (0.2-1.0); BLOOD UREA NITROGEN 20 MG/DL (7-18); CALCIUM LEVEL 6.7 MG/DL (8.5-10.1); CARBON DIOXIDE LEVEL 21 MEQ/L (21-32); CHLORIDE LEVEL 107 MEQ/L (98-107); CREATININE FOR GFR 0.99 MG/DL (0.55-1.30); GLOMERULAR FILTRATION RATE > 60.0 (>60); GLUCOSE, FASTING 103 MG/DL (70-100); POTASSIUM SERUM 4.3 MEQ/L (3.5-5.1); SODIUM LEVEL 137 MEQ/L (136-145); TOTAL PROTEIN 4.5 GM/DL (6.4-8.2)
[2018-11-09 12:35] LABS: ATYPICAL LYMPH 18 % (0-5); BASOPHILS 1 % (0-4); LYMPHOCYTES 8 % (16-52); METAMYELOCYTES 1 % (0-0); MONOCYTES 4 % (0-8); NEUTROPHILS 56 % (35-75); SMUDGE CELLS 1+
[2018-11-09 12:36] LABS: ANISOCYTOSIS 1+; OVALOCYTES 1+; PLATELET ESTIMATE DECREASED (NORMAL); POIKILOCYTOSIS 1+; POLYCHROMASIA 1+
--- NOTE | 2018-11-09 14:02 | NUR ---
POD#1 Overnight, patient required a additional 2 units of PRBS ( total 7units). She has continued to diuresis. 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 Tolerating clear liquids. O: vs 95/52, 109, 98.6 sat 95% 2l O2 gen:L NAD abd: slightly distended incision: dressed ext: SCD in placed. 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 Fidelina Tomlinson MD
[2018-11-10] VITALS (12 sets, daily range): BP systolic 94–124; BP diastolic 53–75
[2018-11-10 04:28] LABS: HEMATOCRIT 22.1 % (36.0-47.0); HEMOGLOBIN 7.7 g/dl (12.0-15.5); MEAN CORPUSCULAR HEMOGLOBIN 31.2 pg (27.0-33.0); MEAN CORPUSCULAR HGB CONC 34.8 g/dl (32.0-36.5); MEAN CORPUSCULAR VOLUME 89.5 fl (80.0-96.0); PLATELET COUNT, AUTOMATED 103 10^3/uL (150-450); RED BLOOD COUNT 2.47 10^6/uL (4.00-5.40)
[2018-11-10 04:54] LABS: ALBUMIN 1.8 GM/DL (3.2-5.2); ALT/SGPT 12 U/L (12-78); BILIRUBIN,TOTAL 0.5 MG/DL (0.2-1.0); BLOOD UREA NITROGEN 12 MG/DL (7-18); CALCIUM LEVEL 7.9 MG/DL (8.5-10.1); CARBON DIOXIDE LEVEL 23 MEQ/L (21-32); CHLORIDE LEVEL 106 MEQ/L (98-107); CREATININE FOR GFR 0.63 MG/DL (0.55-1.30); GLOMERULAR FILTRATION RATE > 60.0 (>60); GLUCOSE, FASTING 98 MG/DL (70-100); POTASSIUM SERUM 3.7 MEQ/L (3.5-5.1); SODIUM LEVEL 135 MEQ/L (136-145); TOTAL PROTEIN 4.6 GM/DL (6.4-8.2)
[2018-11-10] MEDS: AZTREONAM 2 GM in D5W MINI-BAG PLUS 50 ML IV SCH ×3 (06:28→21:17)
[2018-11-10] MEDS: CLINDAMYCIN 900 MG in APPROPRIATE DILUENT 1 EA IV SCH ×3 (07:02→23:04)
[2018-11-10] MEDS: MORPHINE 1MG/ML IN 0.9% NACL 100ML IV BAG IV PRN (07:03)
--- NOTE | 2018-11-10 10:48 | NUR ---
POD#2 Overnight, no new issues. 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 Tolerating regular diet. She appears in good spirits with good mood. She was able to facetime Abimael yesterday. She has been out of bed on several times. . O: vss, AF, sat well on room air gen: Well appearing,NAD abd: less distended than yesterday incision: c/d/i ext: SCD in placed. +1 pitting edema 30.5>--7.7/22.1--<103 A/P: 33yo s/p emergent c/s for placenta abruption with DIC/PPH, currently stable in ICU -2 units of PRBC -will switch of GINSENG FARMER to oral pain meds Fidelina Tomlinson MD
[2018-11-10] MEDS: MOM 30ML SUSPENSION UDC PO PRN (10:57)
[2018-11-10] MEDS: PRENATAL VITAMINS CHEWABLE TABLET PO SCH (10:57)
[2018-11-10] MEDS: DOCUSATE SODIUM 100 MG CAP PO SCH ×2 (10:57→20:23)
[2018-11-10] MEDS: PERCOCET 5MG/325MG TAB PO PRN ×2 (14:57→21:21)
[2018-11-10 17:41] LABS: HEMATOCRIT 28.7 % (36.0-47.0); HEMOGLOBIN 9.9 g/dl (12.0-15.5); MEAN CORPUSCULAR HEMOGLOBIN 30.5 pg (27.0-33.0); MEAN CORPUSCULAR HGB CONC 34.5 g/dl (32.0-36.5); MEAN CORPUSCULAR VOLUME 88.3 fl (80.0-96.0); PLATELET COUNT, AUTOMATED 120 10^3/uL (150-450); RED BLOOD COUNT 3.25 10^6/uL (4.00-5.40); WHITE BLOOD COUNT 29.8 10^3/uL (4.0-10.0)
[2018-11-10 18:29] LABS: EOSINOPHILS 1 % (0-5); LYMPHOCYTES 20 % (16-52); METAMYELOCYTES 1 % (0-0); MONOCYTES 7 % (0-8); MYELOCYTES 1 % (0-0); NEUTROPHILS 68 % (35-75); PLATELET ESTIMATE DECREASED (NORMAL)
[2018-11-10 18:31] LABS: POLYCHROMASIA 1+
[2018-11-10 18:34] LABS: ALT/SGPT 13 U/L (12-78); BILIRUBIN,TOTAL 0.8 MG/DL (0.2-1.0); BLOOD UREA NITROGEN 10 MG/DL (7-18); CALCIUM LEVEL 8.8 MG/DL (8.5-10.1); CARBON DIOXIDE LEVEL 24 MEQ/L (21-32); CHLORIDE LEVEL 104 MEQ/L (98-107); CREATININE FOR GFR 0.62 MG/DL (0.55-1.30); GLOMERULAR FILTRATION RATE > 60.0 (>60); GLUCOSE, FASTING 115 MG/DL (70-100); POTASSIUM SERUM 3.4 MEQ/L (3.5-5.1); SODIUM LEVEL 136 MEQ/L (136-145); TOTAL PROTEIN 5.3 GM/DL (6.4-8.2)
[2018-11-10] MEDS: MORPHINE 4 MG/ML 1ML VIAL/SYRINGE (J2270) IV PRN (20:25)
[2018-11-11] VITALS (9 sets, daily range): BP systolic 98–184; BP diastolic 54–104
[2018-11-11] MEDS: PERCOCET 5MG/325MG TAB PO PRN ×4 (01:27→17:52)
[2018-11-11 05:06] LABS: HEMATOCRIT 26.7 % (36.0-47.0); HEMOGLOBIN 9.1 g/dl (12.0-15.5); MEAN CORPUSCULAR HGB CONC 34.1 g/dl (32.0-36.5); MEAN CORPUSCULAR VOLUME 90.8 fl (80.0-96.0); PLATELET COUNT, AUTOMATED 127 10^3/uL (150-450); RED BLOOD COUNT 2.94 10^6/uL (4.00-5.40); WHITE BLOOD COUNT 24.7 10^3/uL (4.0-10.0)
[2018-11-11] MEDS: AZTREONAM 2 GM in D5W MINI-BAG PLUS 50 ML IV SCH ×2 (05:24→14:09)
[2018-11-11 05:27] LABS: ALBUMIN 1.8 GM/DL (3.2-5.2); ALT/SGPT 13 U/L (12-78); BILIRUBIN,TOTAL 0.6 MG/DL (0.2-1.0); BLOOD UREA NITROGEN 9 MG/DL (7-18); CALCIUM LEVEL 8.5 MG/DL (8.5-10.1); CARBON DIOXIDE LEVEL 24 MEQ/L (21-32); CHLORIDE LEVEL 108 MEQ/L (98-107); CREATININE FOR GFR 0.57 MG/DL (0.55-1.30); GLOMERULAR FILTRATION RATE > 60.0 (>60); GLUCOSE, FASTING 92 MG/DL (70-100); PROTHROMBIN TIME 13.3 SECONDS (12.1-14.4); SODIUM LEVEL 140 MEQ/L (136-145); TOTAL PROTEIN 4.9 GM/DL (6.4-8.2)
[2018-11-11] MEDS: CLINDAMYCIN 900 MG in APPROPRIATE DILUENT 1 EA IV SCH ×2 (06:46→15:39)
--- NOTE | 2018-11-11 08:22 | NUR ---
POD#3 Overnight, no new issues. She has good pain control with percocet. Tolerating regular diet. She appears in good spirits with good mood. Has kept in contact with daughter and Abimael's progression. O: vss, AF, sat well on room air gen: Well appearing, NAD abd: soft, appropriately tender with ff@u-1 incision: c/d/i ext: SCD in placed. - calf tenderness 24>--9.1/26.7--<120 A/P: 33yo s/p emergent c/s for placenta abruption with DIC/PPH, currently stable in ICU -plan to transfer out of ICU -kang out and will continue to encourage ambulation - d/c antibiotics Fidelina Tomlinson MD
[2018-11-11] MEDS: DOCUSATE SODIUM 100 MG CAP PO SCH ×2 (09:35→21:53)
[2018-11-11] MEDS: PRENATAL VITAMINS CHEWABLE TABLET PO SCH (09:35)
[2018-11-11] MEDS: MOM 30ML SUSPENSION UDC PO PRN (12:31)
[2018-11-11] MEDS: FAMOTIDINE 20 MG TAB PO SCH (21:53)
[2018-11-11] MEDS: ONDANSETRON 4MG/2ML VIAL (J2405) IV PRN (21:53)
[2018-11-11] MEDS: MORPHINE 4 MG/ML 1ML VIAL/SYRINGE (J2270) IV PRN (23:07)
[2018-11-12 04:00] VITALS: BP 111/68
[2018-11-12] MEDS: ONDANSETRON 4MG/2ML VIAL (J2405) IV PRN (04:36)
[2018-11-12] MEDS: PERCOCET 5MG/325MG TAB PO PRN (04:37)
[2018-11-12 05:09] LABS: HEMATOCRIT 27.8 % (36.0-47.0); HEMOGLOBIN 9.5 g/dl (12.0-15.5); MEAN CORPUSCULAR HEMOGLOBIN 30.5 pg (27.0-33.0); MEAN CORPUSCULAR HGB CONC 34.2 g/dl (32.0-36.5); MEAN CORPUSCULAR VOLUME 89.4 fl (80.0-96.0); PLATELET COUNT, AUTOMATED 205 10^3/uL (150-450); RED BLOOD COUNT 3.11 10^6/uL (4.00-5.40); WHITE BLOOD COUNT 21.1 10^3/uL (4.0-10.0)
[2018-11-12 05:29] LABS: ALBUMIN 1.9 GM/DL (3.2-5.2); ALT/SGPT 18 U/L (12-78); BILIRUBIN,TOTAL 0.7 MG/DL (0.2-1.0); BLOOD UREA NITROGEN 8 MG/DL (7-18); CALCIUM LEVEL 8.4 MG/DL (8.5-10.1); CARBON DIOXIDE LEVEL 25 MEQ/L (21-32); CHLORIDE LEVEL 107 MEQ/L (98-107); CREATININE FOR GFR 0.57 MG/DL (0.55-1.30); GLOMERULAR FILTRATION RATE > 60.0 (>60); GLUCOSE, FASTING 86 MG/DL (70-100); POTASSIUM SERUM 3.7 MEQ/L (3.5-5.1); SODIUM LEVEL 139 MEQ/L (136-145); TOTAL PROTEIN 5.6 GM/DL (6.4-8.2)
[2018-11-12 05:40] LABS: INR 0.95; PROTHROMBIN TIME 12.8 SECONDS (12.1-14.4)
[2018-11-12 08:00] VITALS: BP 114/69
--- NOTE | 2018-11-12 09:17 | NUR ---
POD#4 Overnight, no new issues. She has good pain control with percocet. Tolerating regular diet. +BM. She appears in good spirits with good mood. No new updates on Abimael. O: vss, AF, sat well on room air gen: Well appearing, NAD abd: soft, appropriately tender with ff@u-3. 3x4cm umbilical hematoma incision: c/d/i ext: SCD in placed. - calf tenderness 21>--9.5/27.8--<205 A/P: 33yo s/p emergent c/s for placenta abruption with DIC/PPH -recovering in stable condition -continue postpositive care -will consider discharge home tomorrow Fidelina Tomlinson MD
[2018-11-12] MEDS: PRENATAL VITAMINS CHEWABLE TABLET PO SCH (09:47)
[2018-11-12] MEDS: DOCUSATE SODIUM 100 MG CAP PO SCH ×2 (09:48→20:25)
[2018-11-12] MEDS: FAMOTIDINE 20 MG TAB PO SCH ×2 (09:48→20:25)
[2018-11-12] MEDS ORDERED: KETOROLAC 30 MG/ML VIAL (J1885) IV ONE (10:00)
[2018-11-12 12:00] VITALS: BP 133/70
[2018-11-12 16:00] VITALS: BP 114/73
[2018-11-12] MEDS: IBUPROFEN 800 MG TAB PO SCH (18:34)
[2018-11-12 20:00] VITALS: BP 101/74
[2018-11-12 23:59] VITALS: BP 106/65
[2018-11-13] MEDS: IBUPROFEN 800 MG TAB PO SCH ×2 (02:15→09:10)
[2018-11-13 04:00] VITALS: BP 110/68
[2018-11-13 05:09] LABS: HEMATOCRIT 27.4 % (36.0-47.0); HEMOGLOBIN 9.1 g/dl (12.0-15.5); MEAN CORPUSCULAR HEMOGLOBIN 30.6 pg (27.0-33.0); MEAN CORPUSCULAR HGB CONC 33.2 g/dl (32.0-36.5); MEAN CORPUSCULAR VOLUME 92.3 fl (80.0-96.0); PLATELET COUNT, AUTOMATED 226 10^3/uL (150-450); RED BLOOD COUNT 2.97 10^6/uL (4.00-5.40); WHITE BLOOD COUNT 17.6 10^3/uL (4.0-10.0)
[2018-11-13 05:21] LABS: INR 0.99; PROTHROMBIN TIME 13.2 SECONDS (12.1-14.4)
[2018-11-13 05:34] LABS: ALT/SGPT 18 U/L (12-78); BILIRUBIN,TOTAL 0.8 MG/DL (0.2-1.0); BLOOD UREA NITROGEN 11 MG/DL (7-18); CALCIUM LEVEL 7.9 MG/DL (8.5-10.1); CARBON DIOXIDE LEVEL 25 MEQ/L (21-32); CHLORIDE LEVEL 110 MEQ/L (98-107); CREATININE FOR GFR 0.51 MG/DL (0.55-1.30); GLOMERULAR FILTRATION RATE > 60.0 (>60); GLUCOSE, FASTING 93 MG/DL (70-100); SODIUM LEVEL 142 MEQ/L (136-145); TOTAL PROTEIN 5.2 GM/DL (6.4-8.2)
[2018-11-13 08:00] VITALS: BP 114/74
[2018-11-13] MEDS ORDERED: OXYC1TAB23 PO (08:11)
[2018-11-13] MEDS ORDERED: IBUP80TA PO (08:30)
[2018-11-13] MEDS: DOCUSATE SODIUM 100 MG CAP PO SCH (08:37)
[2018-11-13] MEDS: PRENATAL VITAMINS CHEWABLE TABLET PO SCH (09:00)
[2018-11-13] MEDS: FAMOTIDINE 20 MG TAB PO SCH (09:00)
== END 2018-11-13 10:25 | disposition home or self-care (01) | DRG 786 ==
LOC: M LDI 12:19 → M ICU 17:26 → M PCU 11-11 13:50
PROVIDERS: ADMIT Advanced Practice Midwife; ATTEND Obstetrics & Gynecology
PROC: 30233N1 Transfusion of Nonautologous Red Blood Cells into Peripheral Vein, Percutaneous Approach (ICD-10-PCS; 2018-11-08)
PROC: 30233R1 Transfusion of Nonautologous Platelets into Peripheral Vein, Percutaneous Approach (ICD-10-PCS; 2018-11-08)
PROC: 30233K1 Transfusion of Nonautologous Frozen Plasma into Peripheral Vein, Percutaneous Approach (ICD-10-PCS; 2018-11-08)
PROC: 10D00Z1 Extraction of Products of Conception, Low, Open Approach (ICD-10-PCS; principal; 2018-11-08 12:49)
DX: O76 Abnormality in fetal heart rate and rhythm complicating labor and delivery (principal); O45.093 Premature separation of placenta with other coagulation defect, third trimester; O60.14X0 Preterm labor third trimester with preterm delivery third trimester, not applicable or unspecified; O99.12 Other diseases of the blood and blood-forming organs and certain disorders involving the immune mechanism complicating childbirth; Z37.0 Single live birth; Z3A.29 29 weeks gestation of pregnancy; Z87.891 Personal history of nicotine dependence; I95.9 Hypotension, unspecified; R00.0 Tachycardia, unspecified; Z88.0 Allergy status to penicillin; Z88.7 Allergy status to serum and vaccine; D69.6 Thrombocytopenia, unspecified; D72.829 Elevated white blood cell count, unspecified

== ENCOUNTER → 2018-11-20 | Outpatient (REF) | payer OTHER ==
[~2018-11-20] MED LIST changes: +IBUP80TA PO; +OXYC1TAB23 PO
== END ==
LOC: M LAB REF 12:35
PROVIDERS: ATTEND Advanced Practice Midwife
DX: R30.0 Dysuria (principal)

== ENCOUNTER → 2019-04-11 | Outpatient (REF) | payer OTHER ==
[2019-04-14 15:06] LABS: HPV HYBRID CAPTURE II Negative (Negative)
== END ==
LOC: M LAB REF 13:04
PROVIDERS: ATTEND Obstetrics & Gynecology
DX: Z12.4 Encounter for screening for malignant neoplasm of cervix (principal); R87.620 Atypical squamous cells of undetermined significance on cytologic smear of vagina (ASC-US)
CPT/HCPCS: 87624; G0123

== ENCOUNTER → 2021-10-13 | Outpatient (CLI) | payer OTHER ==
[2021-10-13 14:44] LABS: BASO % 0.7 % (0.0-1.0); EOS % 0.3 % (0.0-3.0); HEMATOCRIT 42.4 % (36.0-47.0); HEMOGLOBIN 14.4 g/dl (12.0-15.5); LYMPH # 1.4 10^3/uL (1.5-5.0); LYMPH % 24.7 % (24.0-44.0); MEAN CORPUSCULAR HEMOGLOBIN 31.7 pg (27.0-33.0); MEAN CORPUSCULAR VOLUME 93.4 fl (80.0-96.0); MONO # 0.7 10^3/uL (0.0-0.8); MONO % 11.8 % (2.0-8.0); NEUTROPHILS # 3.6 10^3/uL (1.5-8.5); NEUTROPHILS % 62.2 % (36.0-66.0); PLATELET COUNT, AUTOMATED 190 10^3/uL (150-450); RED BLOOD COUNT 4.54 10^6/uL (4.00-5.40); WHITE BLOOD COUNT 5.8 10^3/uL (4.0-10.0)
[2021-10-13 15:20] LABS: ALBUMIN 4.1 GM/DL (3.2-5.2); ALT/SGPT 26 U/L (12-78); BILIRUBIN,TOTAL 0.8 MG/DL (0.2-1.0); BLOOD UREA NITROGEN 8 MG/DL (7-18); CALCIUM LEVEL 8.9 MG/DL (8.5-10.1); CARBON DIOXIDE LEVEL 28 MEQ/L (21-32); CHLORIDE LEVEL 105 MEQ/L (98-107); CREATININE FOR GFR 0.84 MG/DL (0.55-1.30); GLOMERULAR FILTRATION RATE > 60.0 (>60); GLUCOSE, FASTING 94 MG/DL (70-100); SODIUM LEVEL 138 MEQ/L (136-145); TOTAL PROTEIN 7.2 GM/DL (6.4-8.2)
== END ==
LOC: M WUC 13:04
DX: R91.8 Other nonspecific abnormal finding of lung field (principal); R05.9 Cough, unspecified

== ENCOUNTER → 2021-11-19 | Outpatient (CLI) | payer OTHER | LOC: M WUC 08:24 | PROVIDERS: ATTEND Internal Medicine | DX: Z87.01 Personal history of pneumonia (recurrent) (principal) ==

== ENCOUNTER → 2021-12-07 | Outpatient (CLI) | payer OTHER ==
[~2021-12-07] MED LIST changes: +PROHANCE 279.3MG/ML 15ML VIAL ONE; +PROHANCE 279.3MG/ML 5ML VIAL ONE
== END ==
LOC: M PLAIMG 13:22
PROVIDERS: ATTEND Internal Medicine
DX: R92.8 Other abnormal and inconclusive findings on diagnostic imaging of breast (principal); Z80.3 Family history of malignant neoplasm of breast
CPT/HCPCS: A9576; C8908

== ENCOUNTER → 2023-03-07 | Outpatient (CLI) | payer OTHER ==
[~2023-03-07] MED LIST changes: -PROHANCE 279.3MG/ML 15ML VIAL ONE; -PROHANCE 279.3MG/ML 5ML VIAL ONE
== END ==
LOC: M WHC 08:39
PROVIDERS: ATTEND Internal Medicine
DX: Z12.31 Encounter for screening mammogram for malignant neoplasm of breast (principal)

== ENCOUNTER 2023-06-22 07:33 | Emergency (ER) | payer OTHER ==
[~2023-06-22] VITALS: Ht 162.6 cm; Wt 70.4 kg
[2023-06-22] MEDS ORDERED: SEMA2.4P (07:45)
[2023-06-22] MEDS ORDERED: OMEP10CASR PO (07:45)
[2023-06-22] MEDS ORDERED: NS 1,000 ML IV ONE (08:15)
[2023-06-22 08:35] LABS: BASO # 0.1 10^3/uL (0.0-0.2); BASO % 0.7 % (0.0-1.0); EOS # 0.1 10^3/uL (0.0-0.5); EOS % 1.4 % (0.0-3.0); LYMPH # 1.5 10^3/uL (1.5-5.0); LYMPH % 17.1 % (24.0-44.0); MEAN CORPUSCULAR HEMOGLOBIN 32.5 pg (27.0-33.0); MEAN CORPUSCULAR HGB CONC 34.6 g/dl (32.0-36.5); MEAN CORPUSCULAR VOLUME 93.9 fl (80.0-96.0); MONO # 0.6 10^3/uL (0.0-0.8); MONO % 6.1 % (2.0-8.0); NEUTROPHILS # 6.7 10^3/uL (1.5-8.5); NEUTROPHILS % 74.5 % (36.0-66.0); PLATELET COUNT, AUTOMATED 180 10^3/uL (150-450)
[2023-06-22 08:36] LABS: RED BLOOD COUNT 5.73 10^6/uL (4.00-5.40)
[2023-06-22 08:37] LABS: HEMATOCRIT 53.8 % (36.0-47.0); HEMOGLOBIN 18.6 g/dl (12.0-15.5)
[2023-06-22 08:56] LABS: LIPASE 33 U/L (12-53)
[2023-06-22 08:58] LABS: AMYLASE 62 U/L (30-118)
[2023-06-22 08:59] LABS: ALBUMIN 3.8 G/DL (3.2-5.2); ALKALINE PHOSPHATASE 50 U/L (46-116); ALT/SGPT 29 U/L (7.0-40); AST/SGOT 19 U/L (<34); BILIRUBIN,DIRECT 1.1 MG/DL (<0.4); BILIRUBIN,TOTAL 3.7 MG/DL (0.3-1.2); BLOOD UREA NITROGEN 7 MG/DL (9-23); CALCIUM LEVEL 9.2 MG/DL (8.5-10.1); CARBON DIOXIDE LEVEL 23 MMOL/L (20-31); CHLORIDE LEVEL 106 MMOL/L (98-107); CREATININE FOR GFR 0.67 MG/DL (0.55-1.30); GLOMERULAR FILTRATION RATE > 60.0 (>60); GLUCOSE, FASTING 88 MG/DL (60-100); POTASSIUM SERUM 4.4 MMOL/L (3.5-5.1); SODIUM LEVEL 138 MMOL/L (136-145); TOTAL PROTEIN 6.5 G/DL (5.7-8.2)
[2023-06-22 09:11] LABS: HCG, SERUM QUALITATIVE NEGATIVE (NEGATIVE)
[2023-06-22 09:21] LABS: APPEARANCE, URINE CLEAR (CLEAR); BACTERIA, URINE AUTO 1+ (NEGATIVE); BILIRUBIN, URINE AUTO NEGATIVE (NEGATIVE); BLOOD, URINE BLOOD NEGATIVE (NEGATIVE); COLOR, URINE YELLOW (YELLOW); GLUCOSE, URINE (UA) AUTO NEGATIVE (NEGATIVE); KETONE, URINE AUTO TRACE mg/dL (NEGATIVE); LEUKOCYTE ESTERASE, URINE AUTO NEGATIVE (NEGATIVE); NITRITE, URINE AUTO NEGATIVE (NEGATIVE); PROTEIN, URINE AUTO NEGATIVE (NEGATIVE); RBC, URINE AUTO 0 /HPF (0-3); SPECIFIC GRAVITY URINE AUTO 1.002 (1.002-1.035); SQUAMOUS EPITHELIAL CELL UR AU 0 /HPF (0-6); UROBILINOGEN, URINE AUTO 0.2 mg/dL (0.0-2.0); WBC, URINE AUTO 0 /HPF (0-3)
[2023-06-22 10:40] VITALS: BP 129/76; TEMP 97.7; O2SAT 100
== END 2023-06-22 10:48 | disposition home or self-care (01) ==
LOC: M ED 07:33
DX: R10.11 Right upper quadrant pain (principal); E80.6 Other disorders of bilirubin metabolism; D18.03 Hemangioma of intra-abdominal structures; Z88.7 Allergy status to serum and vaccine; Z88.0 Allergy status to penicillin; F17.200 Nicotine dependence, unspecified, uncomplicated; K21.9 Gastro-esophageal reflux disease without esophagitis; F41.9 Anxiety disorder, unspecified; Z79.899 Other long term (current) drug therapy

== ENCOUNTER → 2023-10-19 | Outpatient (CLI) | payer OTHER ==
[~2023-10-19] MED LIST changes: +OMEP10CASR PO; +SEMA2.4P
== END ==
LOC: M RAD 08:04
PROVIDERS: ATTEND Internal Medicine
DX: R10.11 Right upper quadrant pain (principal)
CPT/HCPCS: 78227; A9537

== ENCOUNTER → 2023-11-18 | Outpatient (CLI) | payer OTHER ==
[~2023-11-18] MED LIST changes: +PROHANCE 279.3MG/ML 15ML VIAL ONE
== END ==
LOC: M PLAIMG 08:10
PROVIDERS: ATTEND Internal Medicine
DX: Z80.3 Family history of malignant neoplasm of breast (principal)

== ENCOUNTER → 2024-02-14 | Outpatient (CLI) | payer OTHER ==
[~2024-02-14] MED LIST changes: -PROHANCE 279.3MG/ML 15ML VIAL ONE
== END ==
LOC: M RAD 07:55
PROVIDERS: ATTEND Internal Medicine
DX: D37.6 Neoplasm of uncertain behavior of liver, gallbladder and bile ducts (principal); N28.1 Cyst of kidney, acquired; K76.89 Other specified diseases of liver

== ENCOUNTER → 2024-11-19 | Outpatient (CLI) | payer OTHER ==
[~2024-11-19] MED LIST changes: +PROHANCE 279.3MG/ML 15ML VIAL ONE
== END ==
LOC: M PLAIMG 12:50
PROVIDERS: ATTEND Internal Medicine
DX: R92.30 Dense breasts, unspecified (principal); Z80.3 Family history of malignant neoplasm of breast
CPT/HCPCS: A9576; C8908

== ENCOUNTER → 2025-06-13 | Outpatient (CLI) | payer OTHER ==
[~2025-06-13] MED LIST changes: -PROHANCE 279.3MG/ML 15ML VIAL ONE
== END ==
LOC: M WHC 07:08
PROVIDERS: ATTEND Internal Medicine
DX: Z12.31 Encounter for screening mammogram for malignant neoplasm of breast (principal)